=== PATIENT | female | born 1990 | race African-American/Black ===

== ENCOUNTER 2016-03-04 22:51 | Emergency (ER) | payer OTHER ==
[2016-03-05 02:35] LABS: MEAN CORPUSCULAR HEMOGLOBIN 29.1 pg (27.0-33.0); MEAN CORPUSCULAR HGB CONC 32.5 g/dl (32.0-36.5); MEAN CORPUSCULAR VOLUME 89.3 fl (80.0-96.0); WHITE BLOOD COUNT 9.6 K/mm3 (4.0-10.0)
--- NOTE | 2016-03-05 03:10 | REPUSA ---
CLINICAL HISTORY: determination. TECHNIQUE: Transabdominal ultrasound of the pelvis was performed. FINDINGS: Single, live intrauterine gestation. The gestational sac measures a 3.2 cm. The crown-rump length measures 1.9 cm. This corresponds to an estimated gestational age of 8 weeks an d 3 days. Active heart rate 158 beats per minute. No subchorionic hemorrhage was identified. Corpus l uteum cyst of the left ovary. IMPRESSION: Single, live intrauterine gestation. Left ovarian corpus luteum cyst.
--- NOTE | 2016-03-05 03:34 | EDDOCDS ---
Physician Documentation [facility] Name: Vanessa Kaur Age: 25 yrs Sex: Female : 1990 Arrival Date: 03/04/2016 Time: 22:51 Bed 7 Private MD: [place] [facility] [place]: 03/05/16 03:22 Discharged to Home/Self Care. Impression: Threatened . - Condition is Stable. - Discharge Instructions: Threatened Miscarriage, [id number]. - Medication Reconciliation, Local Pharmacy Hours form. - Follow up: Private Physician; When: 2 - 3 days; Reason: Recheck today's complaints. - Problem is new. - Symptoms are unchanged. Historical: - Allergies: no known allergies; - Home Meds: 1. 28 mg iron- 800 mcg Oral tab daily - PMHx: none; - PSHx: kidney biopsy; - Social history: Smoking status: Patient states was never smoker of tobacco. No barriers to communication noted, The patient speaks fluent Northern Irish. - Family history: Not pertinent. - : The pt / caregiver states he / she is not on anticoagulants. Home medication list is obtained from the patient. - Exposure Risk Screening:: None identified. 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 4 in. (162.56 cm) (R); 03/05 03:31 BP 114 / 67 LA Sitting (auto/reg); Pulse 79 MON; Resp 20 S; Temp 97.7(O); Pulse Ox 98% cln on R/A; Pain 0/10; 03/04 22:52 Body Mass Index 30.90 (81.65 kg, 162.56 cm) dd6 MDM: 01:41 CBC Ordered. EDMS 01:41 Rh Only Ordered. EDMS 01:41 Hcg, Serum Quantitative Ordered. EDMS 01:43 Ultrasound 1st Trimester Ordered. EDMS 02:46 Financial registration complete. slh 03:19 CBC Reviewed. cs11 03:19 Rh Only Reviewed. cs11 03:19 Hcg, Serum Quantitative Reviewed. cs11 Signatures: Dispatcher [employer] EDMS Soosairaj,Yaa,KADIE RN rs3 Glen Gardner DO DO cs11 Malinda Cortez JuliaRN RN js15 MTDD
--- NOTE | 2016-03-05 03:34 | EDDOCDS ---
Nurse's Notes [facility] Name: Vanessa Kaur Age: 25 yrs Sex: Female : 1990 Arrival Date: 03/04/2016 Time: 22:51 Bed 7 Private MD: CARMENCITA Ang Diagnosis: Threatened Presentation: 03/04 22:55 Presenting complaint: Patient states: vaginal spotting and cramps since this morning. 9 rs3 weeks . Risk factors: The patient reports no loss of conciousness prior to arrival. This patient has not had a hysterectomy. This patient has not begun menopause. Adult Sepsis Screening: The patient does not have new or worsening altered mentation. Patient's respiratory rate is less than 22. Systolic blood pressure is greater than 100. Patient has a qSOFA score of 0- Negative Sepsis Screen. Suicide/Homicide risk assessment- the patient denies having any suicidal and/or homicidal ideations and does not present with any other emotional, behavioral or mental health complaints. 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 Transition of care: patient was not received from another setting of care. 22:55 Acuity: [place] Level 3 rs3 22:55 Method Of Arrival: Walkin/Carried/Asstd rs3 Triage Assessment: 22:56 General: Appears in no apparent distress. Pain: Location: pelvis. HIV screening NA for rs3 this visit Offered previously. : Reports vaginal bleeding that is light flow. 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 28 mg iron- 800 mcg Oral tab daily - PMHx: none; - PSHx: kidney biopsy; - Social history: Smoking status: Patient states was never smoker of tobacco. No barriers to communication noted, The patient speaks fluent Ukrainian. - Family history: Not pertinent. - : The pt / caregiver states he / she is not on anticoagulants. Home medication list is obtained from the patient. - Exposure Risk Screening:: None identified. Screenin/21 03:22 Screening information is obtained from the patient. Fall risk: No risks identified. js15 Assistance ADL's: requires no assistance with activities of daily living. Abuse/DV Screen: The patient / caregiver reports he/she is: not in a situation that causes fear, pain or injury. Nutritional screening: No deficits noted. Advance Directives: There is no active DNR order. home support is adequate. Assessment: 02:30 General: Appears in no apparent distress, Behavior is appropriate for age, cooperative. js15 Pain: Location: abdomen Quality of pain is described as crampy. Neurological: Level of Consciousness is awake, alert, obeys commands, Oriented to person, place, time. Respiratory: Airway is patent Respiratory effort is even, unlabored, Respiratory pattern is regular, symmetrical. GI: Reports nausea. : Reports vaginal bleeding that is spotty. Derm: Skin is normal. 03:31 Reassessment: Patient appears in no apparent distress at this time. Pt resting on js15 stretcher, awake and alert with family at bedside; respirations even and unlabored; skin normal, warm, dry. Vital Signs: 03/04 22:52 BP 121 / 71; Pulse 83; Resp 18 S; Temp 99.0(O); Pulse Ox 98% on R/A; Weight 81.65 kg dd6 (R); Height 5 ft. 4 in. (162.56 cm) (R); 03/05 03:31 BP 114 / 67 LA Sitting (auto/reg); Pulse 79 MON; Resp 20 S; Temp 97.7(O); Pulse Ox 98% cln on R/A; Pain 0/10; 03/04 22:52 Body Mass Index 30.90 (81.65 kg, 162.56 cm) dd6 Vitals: 03/04 22:52 Log In Time: March 04, 2016 at 22:50. dd6 ED Course: 22:52 Patient visited by Justin Avila PCA. dd6 22:52 Sav [facility] is Private Physician. dd6 22:52 Patient moved to Waiting dd6 22:53 Patient moved to Pre RCE dd6 22:56 Triage Initiated rs3 03/05 01:37 Patient moved to 7 km 01:40 Glen Gardner DO is Attending Physician. cs11 01:40 Patient visited by Glen Gardner DO. cs11 01:55 Inserted saline lock: 20 gauge in right antecubital area The patient tolerated the js15 procedure well. 01:59 Hcg, Serum Quantitative Sent. js15 01:59 Rh Only Sent. js15 01:59 CBC Sent. js15 02:42 Patient visited by Yuliya Spencer,KADIE. js15 03:27 Ultrasound 1st Trimester Returned. EDMS 03:31 Patient visited by Yolanda Sims PCA. cln 03:31 The patient / caregiver is instructed regarding the plan of care and ED course. js15 03:33 Discontinued IV lock intact, bleeding controlled, pressure dressing applied, No js15 redness/swelling at site. No procedures done that require assistance. Order Results: Lab Order: CBC; [facility] 01:57 Test: WHITE BLOOD COUNT; Value: 9.6; Range: 4.0-10.0; Units: K/mm3; Status: F Test: RED BLOOD COUNT; Value: 4.19; Range: 4.00-5.40; Units: M/mm3; Status: F Test: HEMOGLOBIN; Value: 12.2; Range: 12.0-16.0; Units: g/dl; Status: F Test: HEMATOCRIT; Value: 37.4; Range: 36.0-47.0; Units: %; Status: F Test: MEAN CORPUSCULAR VOLUME; Value: 89.3; Range: 80.0-96.0; Units: fl; Status: F Test: MEAN CORPUSCULAR HEMOGLOBIN; Value: 29.1; Range: 27.0-33.0; Units: pg; Status: F Test: MEAN CORPUSCULAR HGB CONC; Value: 32.5; Range: 32.0-36.5; Units: g/dl; Status: F Test: RED CELL DISTRIBUTION WIDTH; Value: 12.0; Range: 11.5-14.5; Units: %; Status: F Test: PLATELET COUNT, AUTOMATED; Value: 307; Range: 150-450; Units: k/mm3; Status: F Lab Order: Rh Only; [facility] 03/05/16:57 Test: RH; Value: POSITIVE; Status: F Lab Order: Hcg, Serum Quantitative; 03/05/16 01:57 Test: HCG, SERUM QUANTITATIVE; Value: [id number]; Units: MIU/ML; Status: F Test Note: ; GESTATIONAL AGE APPROXIMATE HCG RANGE (MIU/ML) 0.2-1 WEEK 5-50 1-2 WEEKS 50-500 2-3 WEEKS 100-5,000 3-4 WEEKS 500-10,000 4-5 WEEKS 1,000-50,000 5-6 WEEKS 10,000-100,000 6-8 WEEKS 15,000-200,000 2-3 MONTHS 10,000-100,000 NON FEMALES LESS THAN 3.0 Patient samples may contain human heterophilic antibodies that could react with immunoassays to give falsely elevated or depressed results. This assay has been designed to minimize interference from heterophilic antibodies. Elevated hCG levels have also been associated with trophoblastic disease and nontrophoblastic neoplasms. The possibility of having these diseases should be considered before a diagnosis of is made. This test is not intended for use as a surrogate marker for aiding in the diagnosis or monitoring the treatment of cancer patients. [employer]ens [employer] methodology. Radiology Order: Ultrasound 1st Trimester Test: Ultrasound 1st Trimester REASON FOR EXAMINATION: Bleeding; ; CLINICAL HISTORY: determination.; TECHNIQUE: Transabdominal ultrasound of the pelvis was performed.; FINDINGS:; Single, live intrauterine gestation.; The gestational sac measures a 3.2 cm.; The crown-rump length measures 1.9 cm. This corresponds to an estimated gestational age of 8 weeks an; d 3 days. Active heart rate 158 beats per minute. No subchorionic hemorrhage was identified. Corpus l; uteum cyst of the left ovary.; IMPRESSION:; Single, live intrauterine gestation.; Left ovarian corpus luteum cyst.; ; Outcome: 03:22 Discharge ordered by Provider. cs11 03:33 Discharge Assessment: Patient awake, alert and oriented x 3. No cognitive and/or js15 functional deficits noted. Patient verbalized understanding of disposition instructions. patient administered narcotics - no. The following High Risk Discharge criteria are identified: None. Discharged to home ambulatory, with family. Condition: unchanged. Discharge instructions given to patient, Instructed on discharge instructions, follow up and referral plans. Demonstrated understanding of instructions, Pt was receptive of discharge instructions/ teaching. Ultrasound Study completed. Property sent home with patient. 03:34 Patient left the ED. js15 Signatures: Dispatcher [facility] Hospitale[facility]ta Moses, KADIE RN kmg1 Justin Avila, MICROSOFT OFFICE INSTRUCTOR MICROSOFT OFFICE INSTRUCTOR dd6 Yaa Cordova,RN RN rs3 Glen Gardner, DO DO cs11 Yuliya Spencer,RN RN js15 Levi, Yolanda, MICROSOFT OFFICE INSTRUCTOR MICROSOFT OFFICE INSTRUCTOR cln MTDD
--- NOTE | 2016-03-07 04:35 | EDDOCDS ---
Physician Documentation [facility] Name: Vanessa Kaur Age: 25 yrs Sex: Female : 1990 Arrival Date: 03/04/2016 Time: 22:51 Bed 7 Private MD: Sav [facility] [place] Disposition: 03/05/16 03:22 Discharged to Home/Self Care. Impression: Threatened . - Condition is Stable. - Discharge Instructions: Threatened Miscarriage, [id number]. - Medication Reconciliation, Local Pharmacy Hours form. - Follow up: Private Physician; When: 2 - 3 days; Reason: Recheck today's complaints. - Problem is new. - Symptoms are unchanged. Historical: - Allergies: no known allergies; - Home Meds: 1. 28 mg iron- 800 mcg Oral tab daily - PMHx: none; - PSHx: kidney biopsy; - Social history: Smoking status: Patient states was never smoker of tobacco. No barriers to communication noted, The patient speaks fluent Bangladeshi. - Family history: Not pertinent. - : The pt / caregiver states he / she is not on anticoagulants. Home medication list is obtained from the patient. - Exposure Risk Screening:: None identified. 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 4 in. (162.56 cm) (R); 03/05 03:31 BP 114 / 67 LA Sitting (auto/reg); Pulse 79 MON; Resp 20 S; Temp 97.7(O); Pulse Ox 98% cln on R/A; Pain 0/10; 03/04 22:52 Body Mass Index 30.90 (81.65 kg, 162.56 cm) dd6 MDM: 01:41 CBC Ordered. EDMS 01:41 Rh Only Ordered. EDMS 01:41 Hcg, Serum Quantitative Ordered. EDMS 01:43 Ultrasound 1st Trimester Ordered. EDMS 02:46 Financial registration complete. h 03:19 CBC Reviewed. cs11 03:19 Rh Only Reviewed. cs11 03:19 Hcg, Serum Quantitative Reviewed. cs11 03:51 [facility] Payment Agreement was scanned into [employer] and attached to record. [facility] 10:58 T-Sheet-- Draft Copy was scanned into [employer] and attached to record. 14:49 Radiology Report was scanned into [employer] and attached to record. gb Signatures: Dispatcher [employer] EDMS Jasmin Carter, Reg Reg gb Yaa Cordova,KADIE RN rs3 Glen Gardner, DO cs11 Malinda Cortez [facility] Yuliya Spencer,KADIE RN js15 The chart was reviewed and I authenticate all verbal orders and agree with the evaluation and treatment provided.Attachments: 03:51 [facility] Payment Agreement [facility] 10:58 T-Sheet-- Draft Copy gb Chart Complete MTDD
--- NOTE | 2016-03-07 04:35 | EDDOCDS ---
Nurse's Notes [facility] Name: Vanessa Kaur Age: 25 yrs Sex: Female : 1990 Arrival Date: 03/04/2016 Time: 22:51 Bed 7 Private MD: CARMENCITA Ang Diagnosis: Threatened Presentation: 03/04 22:55 Presenting complaint: Patient states: vaginal spotting and cramps since this morning. 9 rs3 weeks . Risk factors: The patient reports no loss of conciousness prior to arrival. This patient has not had a hysterectomy. This patient has not begun menopause. Adult Sepsis Screening: The patient does not have new or worsening altered mentation. Patient's respiratory rate is less than 22. Systolic blood pressure is greater than 100. Patient has a qSOFA score of 0- Negative Sepsis Screen. Suicide/Homicide risk assessment- the patient denies having any suicidal and/or homicidal ideations and does not present with any other emotional, behavioral or mental health complaints. 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 Transition of care: patient was not received from another setting of care. 22:55 Acuity: [place] Level 3 rs3 22:55 Method Of Arrival: Walkin/Carried/Asstd rs3 Triage Assessment: 22:56 General: Appears in no apparent distress. Pain: Location: pelvis. HIV screening NA for rs3 this visit Offered previously. : Reports vaginal bleeding that is light flow. TAPEMAN: 22:57 LMP 01/05/2016 rs3 Historical: - Allergies: no known allergies; - Home Meds: 1. 28 mg iron- 800 mcg Oral tab daily - PMHx: none; - PSHx: kidney biopsy; - Social history: Smoking status: Patient states was never smoker of tobacco. No barriers to communication noted, The patient speaks fluent Gambian. - Family history: Not pertinent. - : The pt / caregiver states he / she is not on anticoagulants. Home medication list is obtained from the patient. - Exposure Risk Screening:: None identified. Screenin/21 03:22 Screening information is obtained from the patient. Fall risk: No risks identified. js15 Assistance ADL's: requires no assistance with activities of daily living. Abuse/DV Screen: The patient / caregiver reports he/she is: not in a situation that causes fear, pain or injury. Nutritional screening: No deficits noted. Advance Directives: There is no active DNR order. home support is adequate. Assessment: 02:30 General: Appears in no apparent distress, Behavior is appropriate for age, cooperative. js15 Pain: Location: abdomen Quality of pain is described as crampy. Neurological: Level of Consciousness is awake, alert, obeys commands, Oriented to person, place, time. Respiratory: Airway is patent Respiratory effort is even, unlabored, Respiratory pattern is regular, symmetrical. GI: Reports nausea. : Reports vaginal bleeding that is spotty. Derm: Skin is normal. 03:31 Reassessment: Patient appears in no apparent distress at this time. Pt resting on js15 stretcher, awake and alert with family at bedside; respirations even and unlabored; skin normal, warm, dry. Vital Signs: 03/04 22:52 BP 121 / 71; Pulse 83; Resp 18 S; Temp 99.0(O); Pulse Ox 98% on R/A; Weight 81.65 kg dd6 (R); Height 5 ft. 4 in. (162.56 cm) (R); 03/05 03:31 BP 114 / 67 LA Sitting (auto/reg); Pulse 79 MON; Resp 20 S; Temp 97.7(O); Pulse Ox 98% cln on R/A; Pain 0/10; 03/04 22:52 Body Mass Index 30.90 (81.65 kg, 162.56 cm) dd6 Vitals: 03/04 22:52 Log In Time: March 04, 2016 at 22:50. dd6 ED Course: 22:52 Patient visited by Justin Avila PCA. dd6 22:52 Sav [facility] is Private Physician. dd6 22:52 Patient moved to Waiting dd6 22:53 Patient moved to Pre RCE dd6 22:56 Triage Initiated rs3 03/05 01:37 Patient moved to 7 km 01:40 Glen Gardner DO is Attending Physician. cs11 01:40 Patient visited by Glen Gardner DO. cs11 01:55 Inserted saline lock: 20 gauge in right antecubital area The patient tolerated the js15 procedure well. 01:59 Hcg, Serum Quantitative Sent. js15 01:59 Rh Only Sent. js15 01:59 CBC Sent. js15 02:42 Patient visited by Yuliya Spencer,KADIE. js15 03:27 Ultrasound 1st Trimester Returned. EDMS 03:31 Patient visited by Yolanda Sims, ALTHEA. cln 03:31 The patient / caregiver is instructed regarding the plan of care and ED course. js15 03:33 Discontinued IV lock intact, bleeding controlled, pressure dressing applied, No js15 redness/swelling at site. No procedures done that require assistance. 03:50 Patient name changed from Vanessa\S\\S\Vincent\S\ to Vanessa\S\Jono\S\Vincent. EDMS 03:51 [facility] [place] Agreement was scanned into [employer] and attached to record. [facility] 10:58 T-Sheet-- Draft Copy was scanned into [employer] and attached to record. 14:49 Radiology Report was scanned into [employer] and attached to record. gb Order Results: Lab Order: CBC; SPEC'M 03/05/16 01:57 Test: WHITE BLOOD COUNT; Value: 9.6; Range: 4.0-10.0; Units: K/mm3; Status: F Test: RED BLOOD COUNT; Value: 4.19; Range: 4.00-5.40; Units: M/mm3; Status: F Test: HEMOGLOBIN; Value: 12.2; Range: 12.0-16.0; Units: g/dl; Status: F Test: HEMATOCRIT; Value: 37.4; Range: 36.0-47.0; Units: %; Status: F Test: MEAN CORPUSCULAR VOLUME; Value: 89.3; Range: 80.0-96.0; Units: fl; Status: F Test: MEAN CORPUSCULAR HEMOGLOBIN; Value: 29.1; Range: 27.0-33.0; Units: pg; Status: F Test: MEAN CORPUSCULAR HGB CONC; Value: 32.5; Range: 32.0-36.5; Units: g/dl; Status: F Test: RED CELL DISTRIBUTION WIDTH; Value: 12.0; Range: 11.5-14.5; Units: %; Status: F Test: PLATELET COUNT, AUTOMATED; Value: 307; Range: 150-450; Units: k/mm3; Status: F Lab Order: Rh Only; SPEC'M 03/05/16 01:57 Test: RH; Value: POSITIVE; Status: F Lab Order: Hcg, Serum Quantitative; SPEC'M 03/05/16 01:57 Test: HCG, SERUM QUANTITATIVE; Value: [id number]; Units: MIU/ML; Status: F Test Note: ; GESTATIONAL AGE APPROXIMATE HCG RANGE (MIU/ML) 0.2-1 WEEK 5-50 1-2 WEEKS 50-500 2-3 WEEKS 100-5,000 3-4 WEEKS 500-10,000 4-5 WEEKS 1,000-50,000 5-6 WEEKS 10,000-100,000 6-8 WEEKS 15,000-200,000 2-3 MONTHS 10,000-100,000 NON FEMALES LESS THAN 3.0 Patient samples may contain human heterophilic antibodies that could react with immunoassays to give falsely elevated or depressed results. This assay has been designed to minimize interference from heterophilic antibodies. Elevated hCG levels have also been associated with trophoblastic disease and nontrophoblastic neoplasms. The possibility of having these diseases should be considered before a diagnosis of is made. This test is not intended for use as a surrogate marker for aiding in the diagnosis or monitoring the treatment of cancer patients. [employer] [place] methodology. Radiology Order: Ultrasound 1st Trimester Test: Ultrasound 1st Trimester REASON FOR EXAMINATION: Bleeding; ; CLINICAL HISTORY: determination.; TECHNIQUE: Transabdominal ultrasound of the pelvis was performed.; FINDINGS:; Single, live intrauterine gestation.; The gestational sac measures a 3.2 cm.; The crown-rump length measures 1.9 cm. This corresponds to an estimated gestational age of 8 weeks an; d 3 days. Active heart rate 158 beats per minute. No subchorionic hemorrhage was identified. Corpus l; uteum cyst of the left ovary.; IMPRESSION:; Single, live intrauterine gestation.; Left ovarian corpus luteum cyst.; ; Outcome: 03:22 Discharge ordered by Provider. cs11 03:33 Discharge Assessment: Patient awake, alert and oriented x 3. No cognitive and/or js15 functional deficits noted. Patient verbalized understanding of disposition instructions. patient administered narcotics - no. The following High Risk Discharge criteria are identified: None. Discharged to home ambulatory, with family. Condition: unchanged. Discharge instructions given to patient, Instructed on discharge instructions, follow up and referral plans. Demonstrated understanding of instructions, Pt was receptive of discharge instructions/ teaching. Ultrasound Study completed. Property sent home with patient. 03:34 Patient left the ED. js15 Signatures: Dispatcher [employer] EDMS Leta Rosa, RN RN kmg1 Jasmin Carter, Reg Reg gb Justin Avila, TRANSACTIONAL ATTORNEY TRANSACTIONAL ATTORNEY dd6 Yaa Cordova,RN RN rs3 Glen Gardner, DO cs11 Malinda Cortez JuliaRN RN js15 Yolanda Sims, TRANSACTIONAL ATTORNEY TRANSACTIONAL ATTORNEY cln Chart Complete MTDD
--- NOTE | 2016-03-07 04:35 | EDDOCDS ---
Physician Documentation [facility] Name: Vanessa Kaur Age: 25 yrs Sex: Female : 1990 Arrival Date: 03/04/2016 Time: 22:51 Bed 7 Private MD: Sav [facility] Disposition: 03/05/16 03:22 Discharged to Home/Self Care. Impression: Threatened . - Condition is Stable. - Discharge Instructions: Threatened Miscarriage, [id number]. - Medication Reconciliation, Local Pharmacy Hours form. - Follow up: Private Physician; When: 2 - 3 days; Reason: Recheck today's complaints. - Problem is new. - Symptoms are unchanged. Historical: - Allergies: no known allergies; - Home Meds: 1. 28 mg iron- 800 mcg Oral tab daily - PMHx: none; - PSHx: kidney biopsy; - Social history: Smoking status: Patient states was never smoker of tobacco. No barriers to communication noted, The patient speaks fluent Bolivian. - Family history: Not pertinent. - : The pt / caregiver states he / she is not on anticoagulants. Home medication list is obtained from the patient. - Exposure Risk Screening:: None identified. 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 4 in. (162.56 cm) (R); 03/05 03:31 BP 114 / 67 LA Sitting (auto/reg); Pulse 79 MON; Resp 20 S; Temp 97.7(O); Pulse Ox 98% cln on R/A; Pain 0/10; 03/04 22:52 Body Mass Index 30.90 (81.65 kg, 162.56 cm) dd6 MDM: 01:41 CBC Ordered. EDMS 01:41 Rh Only Ordered. EDMS 01:41 Hcg, Serum Quantitative Ordered. EDMS 01:43 Ultrasound 1st Trimester Ordered. EDMS 02:46 Financial registration complete. h 03:19 CBC Reviewed. cs11 03:19 Rh Only Reviewed. cs11 03:19 Hcg, Serum Quantitative Reviewed. cs11 03:51 [facility] Payment Agreement was scanned into MED[employer] and attached to record. [facility] 10:58 T-Sheet-- Draft Copy was scanned into MEDHOST and attached to record. 14:49 Radiology Report was scanned into MEDHOST and attached to record. gb Signatures: Dispatcher [employer] EDMS Jasmin Carter, Reg Reg gb Yaa Cordova,KADIE RN rs3 Glen Gardner, DO cs11 Malinda Cortez [facility] Yuliya Spencer,KADIE RN js15 The chart was reviewed and I authenticate all verbal orders and agree with the evaluation and treatment provided.Attachments: 03:51 [facility] Payment Agreement [facility] 10:58 T-Sheet-- Draft Copy gb Chart Complete MTDD
== END 2016-03-05 03:34 | disposition home or self-care (01) ==
LOC: M ED 22:51
DX: O20.0 Threatened abortion (principal); Z3A.08 8 weeks gestation of pregnancy

== ENCOUNTER 2016-05-04 17:46 | Emergency (ER) | payer OTHER ==
[~2016-05-04] VITALS: Ht 162.6 cm; Wt 87.1 kg
[2016-05-04] MEDS ORDERED: PREN1TAB11 PO (17:54)
[2016-05-04 20:23] VITALS: BP 130/79
--- NOTE | 2016-05-04 20:25 | REP ---
Clinical: Vaginal bleeding . Comparison: 03/05/2016 . Findings: Examination demonstrates a single live intrauterine in cephalic presentation. motion is identified by technologist. Placenta is noted posteriorly and grade zero without evidence for placenta previa or abruption. Amniotic fluid volume is normal. Cervix measures 4.2 cm in length and appears closed. No evidence for nuchal cord. Gestational age by LMP 17 weeks 1 day with PADMA 10/11/2016 . Gestational age by current measurements 16 weeks 5 days with PADMA 10/14/2016 . FHR equals 153 beats per minute. Estimated weight 169 grams ( 33rd percentile). Limited anatomical assessment demonstrates normal cranium, cavum, diaphragm, stomach, cord insertion/three-vessel cord, bladder, and extremities. 3 mm choroid plexus cyst noted. Impression: Single live intrauterine in cephalic presentation. 3 mm choroid plexus cyst. Follow up and complete anatomical assessment should be performed at 19-20 weeks. Signed by Max Streeter MD 05/04/2016 08:16 P
== END 2016-05-04 21:38 | disposition home or self-care (01) ==
LOC: M ED 19:19
DX: O20.0 Threatened abortion (principal); Z3A.18 18 weeks gestation of pregnancy; Z91.013 Allergy to seafood

== ENCOUNTER 2016-06-05 11:03 | Outpatient (CLI) | payer OTHER ==
[~2016-06-05] VITALS: Ht 162.6 cm; Wt 85.0 kg
[~2016-06-05 11:03] MED LIST: PREN1TAB11 PO
[2016-06-05 11:15] VITALS: BP 111/62
== END 2016-06-05 13:32 | disposition home or self-care (01) ==
LOC: M LDO 11:03
PROVIDERS: ATTEND Student in an Organized Health Care Education/Training Program
DX: O36.8120 Decreased fetal movements, second trimester, not applicable or unspecified (principal); Z3A.21 21 weeks gestation of pregnancy; O26.832 Pregnancy related renal disease, second trimester; N02.2 Recurrent and persistent hematuria with diffuse membranous glomerulonephritis

== ENCOUNTER 2016-08-13 14:16 | Outpatient (CLI) | payer OTHER ==
[~2016-08-13] VITALS: Ht 162.6 cm; Wt 88.0 kg
[2016-08-13 14:31] VITALS: BP 100/61
[2016-08-13] MEDS ORDERED: RANI15TA PO (14:47)
== END 2016-08-13 16:10 | disposition home or self-care (01) ==
LOC: M LDO 14:16
PROVIDERS: ATTEND Obstetrics & Gynecology
DX: O26.893 Other specified pregnancy related conditions, third trimester (principal); Z3A.31 31 weeks gestation of pregnancy; Z91.013 Allergy to seafood

== ENCOUNTER 2016-08-27 11:02 | Outpatient (CLI) | payer OTHER ==
[~2016-08-27] VITALS: Ht 162.6 cm; Wt 87.0 kg
[~2016-08-27 11:02] MED LIST changes: +RANI15TA PO
[2016-08-27 11:15] VITALS: BP 110/67
--- NOTE | 2016-08-27 12:00 | IPNPDOC ---
Text Note Date of Service The patient was seen on 08/27/16. NOTE [id number] @ 1151 25 yo @ 33+1 by LMP and 8 wks US with PADMA- [id number] presents to L&D Triage ambulatory with c/o DFM. She reported a different hx of movement to every individual she spoke with. Reports intermittent and irregular CTXs. Stated she was having "William Moreno" sometimes. Denies LOF and VB. After being on the monitor for an NST stated she was having lots of pressure. S: Resting in triage bed left tilt. Typed on her phone the entire time she was in triage. Took the phone away to do SVE O: VS- WNL, afebrile FHR- 135, moderate variability, + accels, no decels CTXs- single ctx noted on tracing SVE- fingertip/thick/high, firm/mid A: 25 yo @ 33+1 by LMP and 8 wks US with PADMA- [id number] reassuring and reactive NST. No concerns for PTL. P: Discharge to home with strict return precautions for DFM, LOF, CTX and VB. She verbalized understanding. VS,Fishbone, I+O VS, Fishbone, I+O Vital Signs Date Time Temp Pulse Resp B/P (MAP) Pulse Ox O2 Delivery O2 Flow Rate FiO2 08/27/16 11:15 98.1 94 18 110/67 (81) KRIS COATES CNM Aug 27, 2016 12:00
== END 2016-08-27 12:33 | disposition home or self-care (01) ==
LOC: M LDO 11:02
PROVIDERS: ATTEND Midwife
DX: O36.8120 Decreased fetal movements, second trimester, not applicable or unspecified (principal); Z3A.33 33 weeks gestation of pregnancy

== ENCOUNTER 2016-09-06 16:53 | Outpatient (CLI) | payer OTHER ==
[~2016-09-06] VITALS: Ht 162.6 cm; Wt 87.0 kg
[2016-09-06] MEDS ORDERED: TYLE325T5 PO (17:05)
[2016-09-06 17:07] VITALS: BP 109/68
[2016-09-06 17:57] VITALS: BP 114/71
== END 2016-09-06 18:00 | disposition home or self-care (01) ==
LOC: M LDO 16:53
PROVIDERS: ATTEND Advanced Practice Midwife
DX: O62.0 Primary inadequate contractions (principal); O99.213 Obesity complicating pregnancy, third trimester; O26.833 Pregnancy related renal disease, third trimester; N02.2 Recurrent and persistent hematuria with diffuse membranous glomerulonephritis; Z3A.34 34 weeks gestation of pregnancy

== ENCOUNTER 2016-10-05 08:34 | Inpatient (IN) | payer OTHER ==
[~2016-10-05] VITALS: Ht 162.6 cm; Wt 88.0 kg
[2016-10-05] VITALS (10 sets, daily range): BP systolic 101–133; BP diastolic 54–81
[~2016-10-05 08:34] MED LIST changes: +TYLE325T5 PO
[2016-10-05 10:34] LABS: MEAN CORPUSCULAR HEMOGLOBIN 29.4 pg (27.0-33.0); RED CELL DISTRIBUTION WIDTH 13.2 % (11.5-14.5); WHITE BLOOD COUNT 7.3 K/mm3 (4.0-10.0)
[2016-10-05] MEDS ORDERED: miSOPROStol 50 MCG 1/2 TAB (S0191) PO ONE ×2 (12:00→17:15)
[2016-10-05] MEDS: LR 1,000 ML IV SCH ×2 (12:11→19:50)
[2016-10-06] VITALS (32 sets, daily range): BP systolic 89–122; BP diastolic 52–80
[2016-10-06] MEDS: LR 1,000 ML IV SCH ×3 (05:06→23:54)
[2016-10-06] MEDS: OXYTOCIN DRIP 30 UNITS in APPROPRIATE DILUENT 1 EA IV SCH (09:08)
[2016-10-07] VITALS (28 sets, daily range): BP systolic 85–130; BP diastolic 49–82
[2016-10-07] MEDS ORDERED: FENTANYL 2MCG/ML ROPIVACAINE 0.2% IN 0.9% NACL 200ML IVBAG As Ordered ONE (00:51)
[2016-10-07] MEDS ORDERED: REFRIGERATOR IV KEYS XX PRN (01:09)
[2016-10-07] MEDS ORDERED: ONDANSETRON 4MG/2ML VIAL (J2405) IV PRN ×2 (01:09→04:45)
[2016-10-07] MEDS ORDERED: ePHEDrine SULFATE 25 MG/5 ML(5MG/ML) SYRINGE IV PRN (01:09)
[2016-10-07] MEDS ORDERED: EPIDURAL COMMENT XX SCH (01:09)
[2016-10-07] MEDS ORDERED: FENTANYL/ROPIVACAINE/NACL BAG 200 ML EPIDURAL SCH (01:09)
[2016-10-07] MEDS ORDERED: LACTATED RINGER'S 1000 ML IV PRN (01:09)
[2016-10-07] MEDS ORDERED: NALOXONE INJ 0.4 MG/1 ML VIAL (J2310) IV PRN (01:09)
[2016-10-07] MEDS ORDERED: diphenhydrAMINE INJ 50MG/ML VIAL (J1200) IV PRN (01:09)
[2016-10-07] MEDS ORDERED: EPIDURAL/PCA KEYS XX PRN (01:09)
[2016-10-07 03:21] LABS: ALBUMIN 2.4 GM/DL (3.2-5.2); ALBUMIN/GLOBULIN RATIO 0.63 (1.00-1.93); ALKALINE PHOSPHATASE 108 U/L (45-117); ALT/SGPT 15 U/L (12-78); ANION GAP 11 MEQ/L (8-16); AST/SGOT 10 U/L (15-37); BILIRUBIN,TOTAL 0.5 MG/DL (0.2-1.0); BLOOD UREA NITROGEN 4 MG/DL (7-18); CALCIUM LEVEL 8.4 MG/DL (8.5-10.1); CARBON DIOXIDE LEVEL 21 MEQ/L (21-32); CHLORIDE LEVEL 109 MEQ/L (98-107); GLOMERULAR FILTRATION RATE > 60.0 (>60); GLUCOSE, FASTING 74 MG/DL (70-105); POTASSIUM SERUM 3.5 MEQ/L (3.5-5.1); SODIUM LEVEL 141 MEQ/L (136-145); TOTAL PROTEIN 6.2 GM/DL (6.4-8.2)
[2016-10-07] MEDS ORDERED: OXYTOCIN 30 UNITS IN 0.9% NaCl 500ML IV BAG (J2590) As Ordered ONE (04:19)
[2016-10-07] MEDS ORDERED: DIBUCAINE 1% OINTMENT 30GM TOP PRN (04:45)
[2016-10-07] MEDS ORDERED: MEASLES,MUMPS,RUBELLA VACCINE INJ (MMR-II) (90707) SC SCH (04:45)
[2016-10-07] MEDS ORDERED: PROMETHAZINE 25 MG TAB PO PRN (04:45)
[2016-10-07] MEDS ORDERED: METHYLERGONOVINE MALEATE 0.2 MG TAB PO PRN (04:45)
[2016-10-07] MEDS ORDERED: RHOGAM 300 MCG (1500 IU) INJ (J2790) IM SCH (04:45)
[2016-10-07] MEDS ORDERED: MOM 30ML SUSPENSION UDC PO PRN (04:45)
[2016-10-07] MEDS ORDERED: IBUPROFEN 800 MG TAB PO PRN (04:45)
[2016-10-07] MEDS ORDERED: DOCUSATE SODIUM 100 MG CAP PO PRN (04:45)
[2016-10-07] MEDS: OXYTOCIN DRIP 30 UNITS in APPROPRIATE DILUENT 1 EA IV SCH (04:52)
[2016-10-07] MEDS: PRENATAL VITAMINS CHEWABLE TABLET PO SCH (09:00)
--- NOTE | 2016-10-07 10:52 | HPE ---
DATE OF ADMISSION: 10/05/2016 This lady is 25-year-old 2, para 1, LMP 01/08/2016, EDC 10/14/2016 at 38 weeks of gestation, induction of labor for membranous nephropathy. Past history in 11/2012 at 38 weeks induction of labor because of membranous nephropathy, male, 5 pounds 8 ounces. Risk factors is she has membranous nephropathy. LABORATORY DATA: A+, HIV negative, Hep negative, RPR negative. Varicella immune. Rubella immune. Pap normal. Urine negative. Gonorrhea and chlamydia are negative. Initial 1-hour glucose was 93. The 28-week GTT is 101 and GBS is negative. Her 24-hour urine shows protein of 168. On examination, no distress. Symphysis fundus height is 38, vertex OA, soft, posterior 1 cm, minus 3 station and thick. The presenting part is not well applied to the cervix. Hemoglobin 11.0, hematocrit 34.3, platelets 298. Blood pressure 107/62, respirations 18, pulse 85, temperature is 98.2. Urine is 1.015, pH 6 and trace protein. After discussing the risks and benefits of induction of labor including the increased risk of section, distress, operative vaginal delivery, the patient and agree to induction of labor. We planned on using 50 mg of Cervidil oral. Notify inventory management specialist as needed and schedule a saline lock and epidural as necessary. The patient will be reassessed in 4 hours.
[2016-10-07] MEDS: ACETAMINOPHEN 500 MG TAB PO PRN ×2 (13:02→20:13)
[2016-10-08 06:18] VITALS: BP 101/60
[2016-10-08] MEDS: PRENATAL VITAMINS CHEWABLE TABLET PO SCH (08:05)
[2016-10-08] MEDS ORDERED: COLA100C5 PO (14:47)
[2016-10-08] MEDS ORDERED: IBUP-1114 PO (14:47)
== END 2016-10-08 15:50 | disposition home or self-care (01) | DRG 775 ==
LOC: M LDI 08:34 → M OBS 10-07 08:12
PROVIDERS: ADMIT Obstetrics & Gynecology; ATTEND Student in an Organized Health Care Education/Training Program
PROC: 3E0P7GC Introduction of Other Therapeutic Substance into Female Reproductive, Via Natural or Artificial Opening (ICD-10-PCS; 2016-10-05)
PROC: 10E0XZZ Delivery of Products of Conception, External Approach (ICD-10-PCS; principal; 2016-10-07)
PROC: 0HQ9XZZ Repair Perineum Skin, External Approach (ICD-10-PCS; 2016-10-07)
DX: O26.833 Pregnancy related renal disease, third trimester (principal); N02.2 Recurrent and persistent hematuria with diffuse membranous glomerulonephritis; Z3A.38 38 weeks gestation of pregnancy; O70.0 First degree perineal laceration during delivery; Z37.0 Single live birth

== ENCOUNTER → 2018-03-06 | Outpatient (REF) | payer OTHER ==
[~2018-03-06] MED LIST changes: +COLA100C5 PO; +IBUP-1114 PO
== END ==
LOC: M SFHCLERA 18:50
PROVIDERS: ATTEND Nurse Practitioner Family
DX: R53.81 Other malaise (principal)

== ENCOUNTER → 2018-09-20 | Outpatient (REF) | payer OTHER ==
[~2018-09-20] MED LIST changes: +LAMO200T2 PO
[2018-09-20 22:22] LABS: CHLAMYDIA DNA AMPLIFICATION NEGATIVE (NEGATIVE); GC DNA AMPLIFICATION NEGATIVE (NEGATIVE)
== END ==
LOC: M LAB REF 16:15
PROVIDERS: ATTEND Physician Assistant
DX: Z20.2 Contact with and (suspected) exposure to infections with a predominantly sexual mode of transmission (principal)

== ENCOUNTER 2018-10-02 08:39 | Day surgery (SDC) | payer OTHER ==
[~2018-10-02] VITALS: Ht 160 cm; Wt 84.2 kg
[~2018-10-02 08:39] MED LIST changes: +BACITRACIN PWD 50,000 UNITS VIAL As Ordered ONE; +BUPIVACAINE LIPOSOME/PF 1.3% 20ML VIAL (13.3MG/ML)(EXPAREL)(C9290 PER1MG) As Ordered ONE; +HYDROmorphone HCL 2 MG/ML 1ML VIAL (J1170) As Ordered ONE; +KETAMINE HCL 200 MG/20 ML VIAL As Ordered ONE; -LAMO200T2 PO; +LAMO200T3 PO; +LIDOCAINE 1% MDV 20ML VIAL SQ PRN; +LIDOCAINE 2% INJ 100 MG/5 ML SDV (FOR ANES.) As Ordered ONE; +LR 1,000 ML IV ONE; +MIDAZOLAM INJ 2 MG/2 ML VIAL (J2250) As Ordered ONE; +ONDANSETRON 4MG/2ML VIAL (J2405) As Ordered ONE; +ROCURONIUM BROMIDE 50 MG/5 ML VIAL As Ordered ONE; +ceFAZolin SOD 1 GM in D5W MINI-BAG PLUS 50 ML IV ONE; +dexameTHASONE 4 MG/ML 1ML VIAL (J1100) As Ordered ONE; +fentaNYL 100 MCG/2 ML INJECTION (J3010) As Ordered ONE; +propofoL 200 MG/20 ML VIAL As Ordered ONE
[2018-10-02 09:17] LABS: URINE PREG TEST NEGATIVE (NEGATIVE)
[2018-10-02] MEDS ORDERED: GLYCOPYRROLATE INJ 0.2 MG/ML 2 ML VIAL As Ordered ONE (09:32)
[2018-10-02] MEDS ORDERED: LIDOCAINE 2% INJ 100 MG/5 ML SDV (FOR ANES.) As Ordered ONE (10:07)
[2018-10-02] MEDS ORDERED: SUGAMMADEX SODIUM 500 MG/5 ML VIAL (BRIDION) As Ordered ONE (10:07)
[2018-10-02] MEDS ORDERED: ONDANSETRON 4MG/2ML VIAL (J2405) As Ordered ONE (10:52)
[2018-10-02] MEDS ORDERED: ROCURONIUM BROMIDE 50 MG/5 ML VIAL As Ordered ONE (11:30)
[2018-10-02] MEDS ORDERED: METHOCARBAMOL 1,000 MG/10 ML VIAL (J2800) As Ordered ONE (12:43)
--- NOTE | 2018-10-02 13:49 | POST-OPPD ---
Postoperative Procedure Note Date Of Procedure: Oct 02, 2018 PREOPERATIVE DIAGNOSIS: Bilateral breast hypertrophy POSTOPERATIVE DIAGNOSIS: same FINDINGS: Large breasts. PROCEDURE: Bilateral breast reduction. SURGEON: Dr Ash ANESTHESIA: General SPECIMENS: Right breast 588gm, Left breast 578gm ESTIMATED BLOOD LOSS: 150cc REPLACED: none DRAINS: 10 mm NAYE x 2 COMPLICATIONS: none POSTOPERATIVE CONDITION: stable Disc [id number] AURE ASH DO Oct 02, 2018 13:49
[2018-10-02] MEDS ORDERED: HYDROMORPHONE HCL 0.5 MG/ 0.5 ML SYRINGE (J1170 PER 1) IV PRN (15:00)
[2018-10-02] MEDS ORDERED: fentaNYL 100 MCG/2 ML INJECTION (J3010) IV PRN (15:00)
[2018-10-02] MEDS ORDERED: LR 1,000 ML IV SCH (15:00)
[2018-10-02] MEDS ORDERED: ONDANSETRON 4MG/2ML VIAL (J2405) IV PRN ×2 (15:00→16:45)
[2018-10-02] MEDS ORDERED: PERCOCET 5MG/325MG TAB PO PRN (15:00)
[2018-10-02] MEDS ORDERED: METOCLOPRAMIDE INJ 10MG/2ML VIAL (J2765) As Ordered ONE (15:29)
[2018-10-02 15:30] VITALS: BP 131/84
[2018-10-02] MEDS ORDERED: METOCLOPRAMIDE INJ 10MG/2ML VIAL (J2765) IV ONE (15:45)
[2018-10-02 15:56] VITALS: BP 121/82
[2018-10-02] MEDS ORDERED: MORPHINE 4 MG/ML 1ML VIAL/SYRINGE (J2270) IV PRN (16:45)
[2018-10-02 17:00] VITALS: BP 116/68
[2018-10-02] MEDS: LR 1,000 ML IV SCH (17:18)
[2018-10-02 18:00] VITALS: BP 117/72
[2018-10-02] MEDS: ceFAZolin SOD 1 GM in D5W MINI-BAG PLUS 50 ML IV SCH (18:02)
[2018-10-02 18:52] VITALS: BP 129/79
[2018-10-02] MEDS: PERCOCET 5MG/325MG TAB PO PRN (19:45)
[2018-10-02 20:08] VITALS: BP 119/81
[2018-10-03 00:38] VITALS: BP 118/70
[2018-10-03] MEDS: ceFAZolin SOD 1 GM in D5W MINI-BAG PLUS 50 ML IV SCH (02:37)
[2018-10-03] MEDS: PERCOCET 5MG/325MG TAB PO PRN ×2 (05:32→11:48)
[2018-10-03 06:00] VITALS: BP 111/69
[2018-10-03] MEDS: LR 1,000 ML IV SCH (06:38)
--- NOTE | 2018-10-03 09:09 | IPNPDOC ---
Subjective General Date/Time Seen The patient was seen on 10/03/18 at 09:05. Subject Chief Complaint/History The patient is a 27-year-old female admitted with a reason for visit of Bilateral Breast Hypertrophy. POD 1. S/p BBR. Doing well. Pain controlled with PO meds. Current Medications Current Medications Current Medications Medications (Trade) Dose Ordered Sig/Carlos Eduardo Route PRN Reason Start Time Stop Time Status Last Admin Dose Admin Cefazolin Sodium 1 gm/Dextrose 50 ml @ 100 mls/hr Q8H IV 10/02/18 18:00 10/03/18 02:29 DC 10/03/18 02:37 Fentanyl Citrate (Sublimaze) 25 mcg Q5MP PRN IV MODERATE PAIN (PS 4-7) 10/02/18 15:00 10/02/18 16:00 DC Hydromorphone HCl (Dilaudid) 0.2 mg Q5MP PRN IV MODERATE/SEVERE PAIN (PS 5-10) 10/02/18 15:00 10/02/18 16:00 DC Lactated Ringer's 1,000 ml @ 75 mls/hr [id number] IV 10/02/18 16:45 10/03/18 06:38 Lactated Ringer's 1,000 ml @ 100 mls/hr Q10H IV 10/02/18 15:00 10/02/18 16:00 DC Lidocaine HCl (LIDOCAINE 1% MDV 20ml) 0.1 ml ONCE PRN SQ DISCOMFORT BEFORE IV START 10/02/18 06:00 10/02/18 14:54 DC Morphine Sulfate (Morphine Sulfate Inj) 4 mg Q4HP PRN IV SEVERE PAIN (PS 8-10) 10/02/18 16:45 Ondansetron HCl (ZOFRAN INJection) 4 mg Q4HP PRN IV NAUSEA OR VOMITING 10/02/18 15:00 10/02/18 16:00 DC Ondansetron HCl (ZOFRAN INJection) 4 mg Q6HP PRN IV NAUSEA 10/02/18 16:45 10/02/18 19:44 Oxycodone/ Acetaminophen (Percocet 5mg/ 325mg Tablet) 1 tab ASDIRECTED PRN PO MILD/MODERATE PAIN (PS 1-7) 10/02/18 15:00 10/02/18 16:00 DC Oxycodone/ Acetaminophen (Percocet 5mg/ 325mg Tablet) 1 tab Q4HP PRN PO MODERATE PAIN (PS 5-7) 10/02/18 16:45 10/03/18 05:32 Allergies Coded Allergies: iodine (Verified Allergy, Intermediate, HIVES, 09/24/18) shellfish derived (Verified Allergy, Intermediate, HIVES, 09/24/18) Objective Physical Examination Examination GENERAL APPEARANCE:Patient seen, laying in bed, awake, alert, and oriented. Comfortable, in no acute distress. SKIN: Warm and moist. BREAST: Incisions intact. Soft, NT. NAYE serosanguinous drainage. 35cc each. HEENT: Normocephalic, atraumatic. Leroy palpebral conjunctiva, anicteric sclerae. Lips and mucosa appear moist. NECK: Supple, no thyromegaly. No obvious jugular venous distention. LUNGS: Clear to auscultation bilaterally. No wheezing appreciated. HEART: No chest wall abnormalities. Regular rate and rhythm with no murmurs appreciated. Vital Signs Vital Signs Date Time Temp Pulse Resp B/P (MAP) Pulse Ox O2 Delivery O2 Flow Rate FiO2 10/03/18 06:02 18 10/03/18 06:00 98.9 74 111/69 (83) 98 10/02/18 14:45 3 I&Os I&O- Last 24 Hours up to 6 AM 10/03/18 06:00 Intake Total 2760 ml Output Total 1170 ml Balance 1590 ml Impression Symptomatic macromastia. S/p BBR. Recovering well. Stable for discharge. Instructions given to patient. F/up plastic surgery. Plan / VTE VTE Prophylaxis Ordered?: Yes AURE ASH DO Oct 03, 2018 09:09
[2018-10-03] MEDS ORDERED: PERCOCET PO (09:14)
[2018-10-03 09:49] VITALS: BP 111/72
--- NOTE | 2018-10-04 13:58 | RO ---
DATE OF OPERATION: 10/02/2018 PREPROCEDURE DIAGNOSIS: Bilateral breast hypertrophy. POSTPROCEDURE DIAGNOSIS: Bilateral breast hypertrophy. PROCEDURE: Bilateral breast reduction. ATTENDING SURGEON: Dr. Roya Galdamez ANESTHESIA: General. SPECIMENS SENT: Right breast 588 grams, left breast 578 grams. BLOOD LOSS: 150 mL. No transfusions needed. Two 10 mm Humberto-Polk drains left in place. There were no complications. DESCRIPTION OF PROCEDURE: This is a 27-year-old female who has significantly large breasts causing upper back pain. She has two children. Not planning having any more children. Her youngest is about 1-1/2 years old. She wishes to have her breasts reduced. All the risks and benefits and alternatives discussed with the patient in detail, and she is ready to proceed. On the day of surgery, she was measured and marked in the preoperative holding area. Measurements from sternal notch to nipple areolar complex is 31 cm on the left and 31.5 on the right. Her inframammary fold is at 20 cm, and that is where her new nipple areolar complex is going to be. After the markings were completed and the consent is confirmed, she was brought into the operating room, placed in supine position. Preoperative antibiotics are given, and general anesthesia is induced. She was prepped and draped in the usual sterile fashion. Compression stockings were placed on the lower calves, as well. We started our procedure on the right side. Outline her nipple areolar complex at 45 mm in diameter. The incision is carried out using #10 blade, and then the inferolateral portion of the breast was removed using electrocautery and pulsed electron avalanche knife (PEAK) cautery. Hemostasis obtained, and then the pedicle, which is a superomedial pedicle pattern that we have chosen, was deepithelialized, and the wound is irrigated and checked for hemostasis again. Exparel was injected in the muscle layer, 7 mL, on the right side. Then we started our pedicle construction and closure were brought in the mound to its new position at 20 cm from sternal notch. The new mound was re-created. 0 Vicryl was used with conforming sutures, and then the pillars we start to close with interrupted 3-0 Monocryl sutures. The vertical limb is 7.5 cm. Excess tissue was measured and resected, creating the horizontal incision. 10-mm Humberto- Polk drain was placed through the lateral portion of the horizontal incision, and we continued our closure with 0 Monocryl inverted sutures. Nipple areolar complex was set in place with interrupted 3-0 and 4-0 Monocryl sutures, as well, and a 5-0 running plain gut suture. Total weight on the right side was 588 grams. Then, we turned our attention to the left side, and the nipple areolar complex was measured at 45 mm in diameter, and then we copied the right-sided procedure on the left, excising the flat inferolateral portion of the breast. Hemostasis was obtained. Using electrocautery, the PEAK cautery was used to excise the tissue. The wound was irrigated. Exparel was injected, 7 mL, into the muscular layer and a pectoralis and a lateral serratus, and then the pedicle was de-epithelialized, and we turned our pedicle superiorly to its new position at 20 cm from sternal notch, and re-created the breast mound. The lateral pillars were then close with interrupted 3-0 Monocryl sutures. Vertical limb was 7.5 cm. Excess tissue was measured and excised, creating the horizontal incision, and then the 10 mm Humberto-Polk drain placed through the lateral portion of that same incision and sutured in place. Nipple areolar complex is sutured in with interrupted 3-0 and 4-0 Monocryl sutures and the 5-0 plain running stick. The rest of the Exparel 3 mL was injected along the lower incision line, as well, for postoperative pain control. Prineo dressing was placed, as well as Xeroform dressing to the nipples, bulky dressing, and a support bra. The patient was extubated in the operating room and transferred to the recovery room in stable condition. KEN
== END 2018-10-03 13:15 | disposition home or self-care (01) ==
LOC: M SDC 08:39 → M MS5PR 15:45 → M SDC 10-03 13:15
PROVIDERS: ATTEND Plastic Surgery Surgery of the Hand
DX: N62 Hypertrophy of breast (principal); F31.9 Bipolar disorder, unspecified; F41.9 Anxiety disorder, unspecified; Z79.899 Other long term (current) drug therapy; Z91.013 Allergy to seafood
CPT/HCPCS: 19318; 84703; 88305; 96361; 96374; 96375; 96376; C9290; J0690; J1100; J1170; J2250; J2405; J2765; J2800; J3010

== ENCOUNTER 2019-08-27 19:08 | Emergency (ER) | payer OTHER ==
[~2019-08-27] VITALS: Ht 162.6 cm; Wt 82.9 kg
[2019-08-27 19:08] VITALS: BP 133/88
[~2019-08-27 19:08] MED LIST changes: -BACITRACIN PWD 50,000 UNITS VIAL As Ordered ONE; -BUPIVACAINE LIPOSOME/PF 1.3% 20ML VIAL (13.3MG/ML)(EXPAREL)(C9290 PER1MG) As Ordered ONE; -HYDROmorphone HCL 2 MG/ML 1ML VIAL (J1170) As Ordered ONE; -KETAMINE HCL 200 MG/20 ML VIAL As Ordered ONE; -LIDOCAINE 1% MDV 20ML VIAL SQ PRN; -LIDOCAINE 2% INJ 100 MG/5 ML SDV (FOR ANES.) As Ordered ONE; -LR 1,000 ML IV ONE; -MIDAZOLAM INJ 2 MG/2 ML VIAL (J2250) As Ordered ONE; -ONDANSETRON 4MG/2ML VIAL (J2405) As Ordered ONE; +PERCOCET PO; -ROCURONIUM BROMIDE 50 MG/5 ML VIAL As Ordered ONE; -ceFAZolin SOD 1 GM in D5W MINI-BAG PLUS 50 ML IV ONE; -dexameTHASONE 4 MG/ML 1ML VIAL (J1100) As Ordered ONE; -fentaNYL 100 MCG/2 ML INJECTION (J3010) As Ordered ONE; -propofoL 200 MG/20 ML VIAL As Ordered ONE
[2019-08-27 22:53] LABS: BASO % 0.4 % (0.0-1.0); EOS # 0.1 10^3/uL (0.0-0.5); EOS % 0.9 % (0.0-3.0); HEMATOCRIT 40.3 % (36.0-47.0); HEMOGLOBIN 12.6 g/dl (12.0-15.5); LYMPH # 3.5 10^3/uL (1.5-5.0); LYMPH % 44.5 % (24.0-44.0); MEAN CORPUSCULAR HEMOGLOBIN 28.4 pg (27.0-33.0); MEAN CORPUSCULAR HGB CONC 31.3 g/dl (32.0-36.5); MEAN CORPUSCULAR VOLUME 90.8 fl (80.0-96.0); MONO # 0.5 10^3/uL (0.0-0.8); MONO % 6.3 % (0.0-5.0); NEUTROPHILS # 3.7 10^3/uL (1.5-8.5); NEUTROPHILS % 47.6 % (36.0-66.0); PLATELET COUNT, AUTOMATED 295 10^3/uL (150-450); RED BLOOD COUNT 4.44 10^6/uL (4.00-5.40); WHITE BLOOD COUNT 7.8 10^3/uL (4.0-10.0)
[2019-08-27 23:19] LABS: ALBUMIN 4.2 GM/DL (3.2-5.2); ALT/SGPT 18 U/L (12-78); BILIRUBIN,TOTAL 0.5 MG/DL (0.2-1.0); BLOOD UREA NITROGEN 8 MG/DL (7-18); CALCIUM LEVEL 9.3 MG/DL (8.5-10.1); CARBON DIOXIDE LEVEL 26 MEQ/L (21-32); CHLORIDE LEVEL 108 MEQ/L (98-107); CREATININE FOR GFR 0.85 MG/DL (0.55-1.30); GLOMERULAR FILTRATION RATE > 60.0 (>60); GLUCOSE, FASTING 74 MG/DL (70-100); SODIUM LEVEL 141 MEQ/L (136-145); TOTAL PROTEIN 8.2 GM/DL (6.4-8.2)
[2019-08-27 23:52] LABS: HCG, SERUM QUALITATIVE NEGATIVE (NEGATIVE)
[2019-08-28] MEDS ORDERED: RALTEGRAVIR 400 MG TAB (ISENTRESS) PO SCH
[2019-08-28] MEDS ORDERED: TRUVADA 200MG/300MG TABLET PO SCH
[2019-08-28] MEDS ORDERED: ONDANSETRON 4 MG ORAL DISINTEGRATING TAB PO ONE
[2019-08-28] MEDS ORDERED: metroNIDAZOLE (FLAGYL) 500MG TABLET PO ONE (00:45)
[2019-08-28] MEDS ORDERED: cefTRIAXone SOD 250MG VIAL (J0696 PER 250MG) IM ONE (00:45)
[2019-08-28] MEDS ORDERED: EXPOSURE KIT-ADULT 7 DAY SUPPLY PO ONE (00:45)
[2019-08-28] MEDS ORDERED: LIDOCAINE 1% SDV 5ML VIAL DILUENT ONE (00:45)
[2019-08-28] MEDS ORDERED: AZITHROMYCIN 250MG TABLET PO ONE (00:45)
[2019-08-28] MEDS ORDERED: RALTEGRAVIR 400 MG TAB (ISENTRESS) PO ONE (00:45)
[2019-08-28] MEDS ORDERED: TRUVADA 200MG/300MG TABLET PO ONE (00:45)
[2019-08-28] MEDS ORDERED: TRUVTAB PO (00:50)
[2019-08-28] MEDS ORDERED: ONDA4TAB6 PO (00:50)
[2019-08-28] MEDS ORDERED: RALT40TA PO (00:50)
[2019-08-28 11:14] LABS: HEPATITIS B SURFACE ANTIBODY POSITIVE (POSITIVE)
[2019-08-28 11:24] LABS: HEPATITIS B SURFACE ANTIGEN NEGATIVE (NEGATIVE)
[2019-08-28 11:51] LABS: HEPATITIS C VIRUS ABY INDEX 0.1 INDEX (<0.8); HIV 1&2 SCREEN CENTAUR NEGATIVE (NEGATIVE)
== END 2019-08-28 01:26 | disposition home or self-care (01) ==
LOC: M ED 19:08
DX: Z04.41 Encounter for examination and observation following alleged adult rape (principal); Z79.3 Long term (current) use of hormonal contraceptives; Z79.899 Other long term (current) drug therapy; Z91.013 Allergy to seafood
CPT/HCPCS: 80053; 84703; 85025; 86706; 86780; 86803; 87340; 87389; 96372; 99283; J0696; Q0162